=== PATIENT | female | born 1990 | race Caucasian/White ===

== ENCOUNTER 2018-10-27 04:00 | Emergency (ER) | payer OTHER ==
[~2018-10-27] VITALS: Ht 160 cm; Wt 60.3 kg
[2018-10-27] MEDS ORDERED: AMOX TR-K CLV1 EAC2 ORAL (04:11)
--- NOTE | 2018-10-27 04:18 | NUR ---
ED Nurse Note: Patient presents with complaints of persistent symptoms of the ears nose and throat. patient reports history of fever as high as 102.7.
[2018-10-27 04:20] VITALS: BP 102/70
[2018-10-27] MEDS ORDERED: ZITHROMAX250 MG ORAL (04:29)
--- NOTE | 2018-10-27 04:30 | Emergency Room Report ---
History of Present Illness General Chief Complaint: Flu Like Symptoms Source: Patient Present Illness HPI Is a 28-year-old female with a history of recurrent strep throat. She presents with chief complaint of fever and body pain. She was treated for sinusitis started about almost a week ago. She since then has been having fever. Temperature 100-3 hours prior to arrival. Better after Tylenol. No nausea no vomiting. Still have a slight cough. Has some abdominal cramping no nausea or vomiting. Does have increased urination. Allergies: Coded Allergies: CODEINE (Verified Allergy, Mild, Itchiness, 10/27/18) Patient History Past Medical History: see triage record, old chart reviewed Past Surgical History: none Pertinent Family History: none Social History: Denies: smoking Last Menstrual Period: unkown Now: No : 0 Para: 0 Immunizations: other Reviewed Nursing Documentation: PMH: Agreed; PSxH: Agreed Nursing Documentation-PMH Past Medical History: No Stated History Review of Systems Constitutional: Reports: fever, weakness Eye: Denies: eye pain, blurred vision ENT: Denies: ear pain, nose congestion, throat swelling Respiratory: Reports: cough; Denies: shortness of breath Cardiovascular: Denies: chest pain, palpitations Gastrointestinal: Reports: abdominal pain; Denies: diarrhea, nausea, vomiting Musculoskeletal: Denies: back pain, joint pain Skin: Denies: rash Neurological: Denies: headache, numbness Endocrine: Denies: increased thirst, increased urine Hematologic/Lymphatic: Denies: easy bruising All Other Systems: negative except mentioned in HPI Physical Exam Vital Signs Date Time Temp Pulse Resp B/P (MAP) Pulse Ox O2 Delivery O2 Flow Rate FiO2 10/27/18 04:03 98.6 86 17 102/70 98 Room Air vitals normal Sp02 EP Interpretation: reviewed, normal General Appearance: well appearing, no apparent distress, alert Head: normocephalic, atraumatic Eyes: bilateral eye PERRL, bilateral eye EOMI ENT: hearing grossly normal, tonsillar swelling, tonsillar exudate Neck: full range of motion, supple, no meningismus Respiratory: chest non-tender, lungs clear, normal breath sounds Cardiovascular #1: regular rate, rhythm, no murmur Gastrointestinal: normal bowel sounds, non tender, no mass, no organomegaly, no bruit, non-distended Musculoskeletal: back normal, gait/station normal, normal range of motion Psychiatric: mood/affect normal Skin: warm/dry Medical Decision Making Diagnostic Impression: Primary Impression: Influenza-like symptoms Additional Impression: Acute tonsillitis Qualified Codes: J03.90 - Acute tonsillitis, unspecified ER Course Patient presents with influenza-like symptoms. This most likely viral in etiology rather than bacterial infection. She does have exudative tonsillitis. We'll put her on antibiotic No evidence of peritonsillar abscess, meningitis , pneumonia or other serious bacterial infection. We'll discharge home with prescription for azithromycin. Patient said she will follow-up in [place] for ENT referral for surgery. Last Vital Signs Date Time Temp Pulse Resp B/P (MAP) Pulse Ox O2 Delivery O2 Flow Rate FiO2 10/27/18 04:20 86 17 Room Air 10/27/18 04:20 98.6 102/70 98 Status: unchanged Disposition: HOME, SELF-CARE Condition: Stable Scripts Azithromycin* (ZITHROMAX*) 250 Mg Tablet 250 MG ORAL DAILY, #6 TAB 0 Refills Take two tables once daily for 1 day, then one tablet once daily for 4 days. Prov: Yayo Kaplan MD 10/27/18 Additional Instructions: Increase fluids. Stop your current antibiotics. Return if symptom worsen. Follow-up with your doctor in 7 days if not better. Yayo Kaplan MD Oct 27, 2018 04:30
[2018-10-27 04:33] LABS: APPEARANCE,URINE CLEAR; BILIRUBIN, URINE NEGATIVE (NEGATIVE); COLOR,URINE PALE YELLOW; GLUCOSE, URINE (UA) NEGATIVE (NEGATIVE); KETONES,URINE NEGATIVE (NEGATIVE); LEUKOCYTE ESTERASE ,URINE NEGATIVE (NEGATIVE); NITRITE,URINE NEGATIVE (NEGATIVE); PH,URINE 6 (4.5-8.0); PROTEIN,URINE NEGATIVE (NEGATIVE); UROBILINOGEN,URINE NORMAL MG/DL (0.0-1.0)
--- NOTE | 2018-10-27 04:37 | NUR ---
ED Nurse Note: Patient is waiting patiently for results of urine test. Patient has no current complaints or s/s of acute distress.
--- NOTE | 2018-10-27 04:58 | NUR ---
ED Nurse Note: Patient cleared for discharge, patient ambulatory with steady gait, no s/s of acute distress. ID band removed. Patient verbalized understanding of discharge instructions. Patient departed with all personal belongings.
[2018-10-27 04:59] VITALS: BP 102/70
== END 2018-10-27 05:00 | disposition home or self-care (01) ==
LOC: EMR 04:12
DX: J11.1 Influenza due to unidentified influenza virus with other respiratory manifestations (principal); J03.90 Acute tonsillitis, unspecified; Z88.5 Allergy status to narcotic agent
CPT/HCPCS: 81003; 99283